=== PATIENT | female | born 1980 | race Two or more races ===

== ENCOUNTER 2021-04-25 16:33 | Inpatient (IN) | payer MEDICAID, OTHER ==
[~2021-04-25] VITALS: Ht 160 cm; Wt 61.1 kg
[2021-04-25 18:00] LABS: Albumin 3.7 g/dL (3.4-5.0); Calcium 8.1 mg/dL (8.5-10.1)
[2021-04-25 18:04] LABS: BUN/Creatinine Ratio 10.2; Bilirubin, Total 0.9 mg/dL (0.2-1.0); Total Protein 8.8 g/dL (6.4-8.2)
[2021-04-25 18:07] LABS: INR 0.99 (0.9-1.15); Partial Thromboplastin Time 26.1 sec (23.6-33.0)
[2021-04-25 18:26] LABS: Eosinophils # (auto) 0 10 ^3/uL (0-0.8); Hematocrit 14.7 % (36.0-46.0)
[2021-04-25] MEDS ORDERED: IOHEXOL 300 MG/ML 100ML BOTTLE IJ ONE (18:26)
[2021-04-25 18:27] LABS: Basophils # (auto) 0.1 10 ^3/uL (0-0.2); Basophils % (auto) 1.4 % (0.0-2.0); Eosinophils % (auto) 0.1 % (0.0-7.0); Lymphocytes # (auto) 0.5 10 ^3/uL (0.4-5.4); Lymphocytes % (auto) 9.4 % (10.0-50.0); Mean Corpuscular Hemoglobin 18.6 pg (28.0-32.0); Mean Corpuscular Volume 61.9 fL (80.0-100.0); Monocytes # (auto) 0.1 10 ^3/uL (0-1.3); Monocytes % (auto) 2.8 % (0.0-12.0); Neutrophils # (auto) 4.6 10 ^3/uL (1.6-8.6); Neutrophils % (auto) 86.3 % (37.0-80.0); Nucleated Red Blood Cells % 2.3 %; Red Blood Cells 2.37 10^6/uL (4.0-5.20); White Blood Cell 5.4 10^3/uL (4.4-10.8)
[2021-04-25 18:38] LABS: Red Cell Distribution Width 25.1 % (11.8-14.3)
[2021-04-25 18:40] LABS: Hemoglobin 4.4 g/dL (12.2-16.2)
[2021-04-25] MEDS ORDERED: SODIUM CHLORIDE 0.9% 500 ML IV ONE (21:15)
[2021-04-25 21:28] LABS: % Iron Saturation 4.6 % (15-50)
[2021-04-25] MEDS ORDERED: cefTRIAXone 1GM/50ML D5W 50 ML IV ONE (22:00)
[2021-04-25] MEDS ORDERED: MORPHINE SULFATE INJECTION 2 MG/ML SYRG IV PRN (22:00)
[2021-04-25] MEDS ORDERED: POTASSIUM CHL 20 Meq TABLET PO ONE (22:00)
[2021-04-25] MEDS: ASCORBIC ACID 500 MG TAB PO SCH (22:00)
[2021-04-25] MEDS ORDERED: NITROGLYCERIN 0.4 MG SL TAB SL PRN (22:00)
[2021-04-25] MEDS ORDERED: AZITHROMYCIN 250 MG TAB PO ONE (22:00)
[2021-04-25] MEDS ORDERED: ACETAMINOPHEN 325 MG TAB PO PRN (22:00)
[2021-04-25 23:10] VITALS: BP 105/65
[2021-04-25 23:25] VITALS: BP 93/55
[2021-04-26 00:10] VITALS: BP 102/51
[2021-04-26] MEDS ORDERED: AZITHROMYCIN 250 MG TAB PO ONE (00:47)
[2021-04-26] MEDS ORDERED: ASCORBIC ACID 1,000 MG TAB ONE (00:48)
[2021-04-26] MEDS ORDERED: cefTRIAXone 1GM/50ML D5W 50 ML IV ONE (00:48)
[2021-04-26] MEDS ORDERED: POTASSIUM CHL 20 Meq TABLET PO ONE (00:48)
[2021-04-26 01:30] VITALS: BP 103/56
[2021-04-26 01:50] VITALS: BP 100/47
[2021-04-26 02:10] VITALS: BP 102/70
[2021-04-26 03:10] VITALS: BP 95/59
[2021-04-26 04:25] VITALS: BP 96/53
[2021-04-26 07:50] LABS: White Blood Cell 5.1 10^3/uL (4.4-10.8)
[2021-04-26 07:53] LABS: Basophils # (auto) 0 10 ^3/uL (0-0.2); Basophils % (auto) 0.5 % (0.0-2.0); Eosinophils # (auto) 0 10 ^3/uL (0-0.8); Eosinophils % (auto) 0.1 % (0.0-7.0); Hemoglobin 7.9 g/dL (12.2-16.2); Lymphocytes # (auto) 0.4 10 ^3/uL (0.4-5.4); Lymphocytes % (auto) 8.5 % (10.0-50.0); Mean Corpuscular Hgb Conc. 31.7 g/dL (32.0-36.0); Monocytes # (auto) 0.1 10 ^3/uL (0-1.3); Monocytes % (auto) 2.2 % (0.0-12.0); Neutrophils # (auto) 4.6 10 ^3/uL (1.6-8.6); Neutrophils % (auto) 88.7 % (37.0-80.0); Nucleated Red Blood Cells % 1.8 %; Red Blood Cells 3.57 10^6/uL (4.0-5.20); Red Cell Distribution Width 31.4 % (11.8-14.3)
[2021-04-26 08:03] LABS: Mean Corpuscular Hemoglobin 22.2 pg (28.0-32.0)
[2021-04-26 08:10] LABS: BUN/Creatinine Ratio 10.3; Calcium 8.3 mg/dL (8.5-10.1); Potassium 3.5 mmol/L (3.5-5.1)
[2021-04-26] MEDS: ASCORBIC ACID 500 MG TAB PO SCH ×2 (10:12→22:30)
[2021-04-26] MEDS: ZINC SULFATE 220mg CAP or TAB PO SCH (10:12)
[2021-04-26] MEDS ORDERED: REMDESIVIR PER PHARMACY 0 ML IV SCH ×2 (13:45)
[2021-04-26] MEDS: FERROUS SULFATE 325mg EC TAB PO SCH (13:45)
[2021-04-26] MEDS: cefTRIAXone 1GM/50ML D5W 50 ML IV SCH (22:00)
[2021-04-26] MEDS: AZITHROMYCIN 500MG/ 250ML 250 ML IV SCH (22:30)
[2021-04-27 02:11] LABS: Urine Bacteria NONE SEEN /hpf (None Seen); Urine Blood 2+ /uL (Negative); Urine Mucus FEW (None Seen); Urine Specific Gravity 1.025 (1.001-1.035); Urine WBC 20 /hpf (0 - 5)
[2021-04-27 06:57] LABS: Basophils # (auto) 0 10 ^3/uL (0-0.2); Eosinophils # (auto) 0 10 ^3/uL (0-0.8); Eosinophils % (auto) 0.1 % (0.0-7.0); Hemoglobin 7.6 g/dL (12.2-16.2); Lymphocytes # (auto) 0.4 10 ^3/uL (0.4-5.4); Lymphocytes % (auto) 9.6 % (10.0-50.0); Monocytes # (auto) 0.1 10 ^3/uL (0-1.3); Neutrophils # (auto) 3.4 10 ^3/uL (1.6-8.6); White Blood Cell 3.9 10^3/uL (4.4-10.8)
[2021-04-27 07:03] LABS: Basophils % (auto) 0.1 % (0.0-2.0); Hematocrit 23.9 % (36.0-46.0); Monocytes % (auto) 2.7 % (0.0-12.0); Neutrophils % (auto) 87.5 % (37.0-80.0); Nucleated Red Blood Cells % 1.6 %; Red Blood Cells 3.33 10^6/uL (4.0-5.20)
[2021-04-27 07:05] LABS: Mean Corpuscular Volume 71.8 fL (80.0-100.0)
[2021-04-27 07:06] LABS: Red Cell Distribution Width 31.5 % (11.8-14.3)
[2021-04-27 07:19] LABS: Albumin 3.1 g/dL (3.4-5.0); BUN/Creatinine Ratio 9.6; Calcium 8.2 mg/dL (8.5-10.1); Potassium 3.3 mmol/L (3.5-5.1)
[2021-04-27 07:21] LABS: Bilirubin, Total 0.8 mg/dL (0.2-1.0); Total Protein 7.7 g/dL (6.4-8.2)
[2021-04-27] MEDS: ZINC SULFATE 220mg CAP or TAB PO SCH (10:58)
[2021-04-27] MEDS ORDERED: FUROSEMIDE 20 MG TAB PO ONE (11:00)
[2021-04-27] MEDS ORDERED: guaiFENesin-DM 100/10mg/5ml SYR PO PRN (11:00)
[2021-04-27] MEDS ORDERED: POTASSIUM CHL 20 Meq TABLET PO ONE (11:00)
[2021-04-27] MEDS ORDERED: ACETAMINOPHEN 500 MG TAB PO PRN (11:00)
[2021-04-27] MEDS ORDERED: REMDESIVIR 200 MG in NS 210ml LOADING DOSE ADULT IV ONE (12:00)
[2021-04-27] MEDS: FERROUS SULFATE 325mg EC TAB PO SCH (12:19)
[2021-04-27] MEDS: IVERMECTIN 3 MG TAB PO SCH (12:20)
[2021-04-27] MEDS: ONDANSETRON HCL 4 MG/2 ML VIAL IV PRN ×2 (12:22→22:34)
[2021-04-27 17:39] VITALS: BP 112/53
[2021-04-27 18:16] VITALS: BP 105/63
[2021-04-27] MEDS: BUDESONIDE (INHALATION) 180 MCG IH IN SCH (20:48)
[2021-04-27] MEDS: AZITHROMYCIN 500MG/ 250ML 250 ML IV SCH (21:21)
[2021-04-27] MEDS: cefTRIAXone 1GM/50ML D5W 50 ML IV SCH (21:21)
[2021-04-27 22:00] VITALS: BP 93/57
[2021-04-28 05:00] VITALS: BP 102/67
[2021-04-28] MEDS: ONDANSETRON HCL 4 MG/2 ML VIAL IV PRN (06:51)
[2021-04-28 08:08] LABS: Basophils # (auto) 0 10 ^3/uL (0-0.2); Monocytes # (auto) 0.1 10 ^3/uL (0-1.3); Neutrophils # (auto) 2.8 10 ^3/uL (1.6-8.6); White Blood Cell 3.2 10^3/uL (4.4-10.8)
[2021-04-28 08:15] LABS: Basophils % (auto) 0.5 % (0.0-2.0); Eosinophils # (auto) 0 10 ^3/uL (0-0.8); Eosinophils % (auto) 0.5 % (0.0-7.0); Hematocrit 25.2 % (36.0-46.0); Hemoglobin 8.1 g/dL (12.2-16.2); Lymphocytes # (auto) 0.3 10 ^3/uL (0.4-5.4); Monocytes % (auto) 2.8 % (0.0-12.0); Neutrophils % (auto) 86.2 % (37.0-80.0); Nucleated Red Blood Cells % 1.8 %; Red Blood Cells 3.44 10^6/uL (4.0-5.20)
[2021-04-28] MEDS: BUDESONIDE (INHALATION) 180 MCG IH IN SCH ×2 (08:15→22:00)
[2021-04-28 08:18] LABS: Mean Corpuscular Hemoglobin 23.5 pg (28.0-32.0); Mean Corpuscular Volume 73.3 fL (80.0-100.0)
[2021-04-28 08:19] LABS: Red Cell Distribution Width 31.7 % (11.8-14.3)
[2021-04-28 08:35] VITALS: BP 97/61
[2021-04-28 08:39] LABS: Potassium 3.2 mmol/L (3.5-5.1)
[2021-04-28 09:12] LABS: Albumin 3.1 g/dL (3.4-5.0); BUN/Creatinine Ratio 14.3; Bilirubin, Total 0.7 mg/dL (0.2-1.0); Calcium 8.3 mg/dL (8.5-10.1)
[2021-04-28] MEDS: FUROSEMIDE 20 MG TAB PO SCH (10:14)
[2021-04-28] MEDS: ZINC SULFATE 220mg CAP or TAB PO SCH (10:14)
[2021-04-28] MEDS: ASCORBIC ACID 1,000 MG TAB PO SCH (10:14)
[2021-04-28] MEDS: IVERMECTIN 3 MG TAB PO SCH (10:14)
[2021-04-28] MEDS: POTASSIUM CHL 20 Meq TABLET PO SCH (10:14)
[2021-04-28] MEDS: CHOLECALCIFEROL (VITD3) 2,000 UNIT CAP/TAB PO SCH (10:15)
[2021-04-28] MEDS: ALBUTEROL SULF HFA 90MCG INH 200DOSE IN PRN (11:26)
[2021-04-28] MEDS: FERROUS SULFATE 325mg EC TAB PO SCH (12:02)
[2021-04-28 13:00] VITALS: BP 100/65
[2021-04-28] MEDS: REMDESIVIR 100mg 100 MG in SODIUM CHL 0.9% 230 ML IV SCH (14:27)
[2021-04-28] MEDS: POTASSIUM CHL 10MEQ/50ML 50 ML IV SCH ×4 (15:06→18:29)
[2021-04-28 17:00] VITALS: BP 108/72
[2021-04-28] MEDS: cefTRIAXone 1GM/50ML D5W 50 ML IV SCH (20:10)
[2021-04-28] MEDS: AZITHROMYCIN 500MG/ 250ML 250 ML IV SCH (21:22)
[2021-04-28 22:00] VITALS: BP 100/64
[2021-04-29 05:00] VITALS: BP 101/64
[2021-04-29 07:45] LABS: Basophils # (auto) 0 10 ^3/uL (0-0.2); Basophils % (auto) 0.5 % (0.0-2.0); Eosinophils # (auto) 0 10 ^3/uL (0-0.8); Eosinophils % (auto) 0.9 % (0.0-7.0); Hematocrit 28.4 % (36.0-46.0); Lymphocytes # (auto) 0.3 10 ^3/uL (0.4-5.4); Lymphocytes % (auto) 10.1 % (10.0-50.0); Mean Corpuscular Hgb Conc. 31.6 g/dL (32.0-36.0); Mean Corpuscular Volume 72.8 fL (80.0-100.0); Monocytes # (auto) 0.1 10 ^3/uL (0-1.3); Monocytes % (auto) 5.2 % (0.0-12.0); Neutrophils # (auto) 2.1 10 ^3/uL (1.6-8.6); Neutrophils % (auto) 83.3 % (37.0-80.0); Nucleated Red Blood Cells % 1.4 %; Red Cell Distribution Width 32.5 % (11.8-14.3); White Blood Cell 2.5 10^3/uL (4.4-10.8)
[2021-04-29 07:56] LABS: Albumin 3.3 g/dL (3.4-5.0); BUN/Creatinine Ratio 14.9; Calcium 8.9 mg/dL (8.5-10.1); Potassium 3.8 mmol/L (3.5-5.1)
[2021-04-29 07:59] LABS: Bilirubin, Total 0.8 mg/dL (0.2-1.0); Total Protein 8.9 g/dL (6.4-8.2)
[2021-04-29 09:00] VITALS: BP 94/60
[2021-04-29] MEDS: BUDESONIDE (INHALATION) 180 MCG IH IN SCH ×2 (09:30→21:54)
[2021-04-29] MEDS: ASCORBIC ACID 1,000 MG TAB PO SCH (10:00)
[2021-04-29] MEDS: POTASSIUM CHL 20 Meq TABLET PO SCH (10:00)
[2021-04-29] MEDS: ZINC SULFATE 220mg CAP or TAB PO SCH (10:00)
[2021-04-29] MEDS: IVERMECTIN 3 MG TAB PO SCH (10:00)
[2021-04-29] MEDS: FUROSEMIDE 20 MG TAB PO SCH (10:00)
[2021-04-29] MEDS: CHOLECALCIFEROL (VITD3) 2,000 UNIT CAP/TAB PO SCH (10:00)
[2021-04-29] MEDS: FERROUS SULFATE 325mg EC TAB PO SCH (12:00)
[2021-04-29 12:25] VITALS: BP 102/65
[2021-04-29 14:30] VITALS: BP 101/63
[2021-04-29] MEDS: REMDESIVIR 100mg 100 MG in SODIUM CHL 0.9% 230 ML IV SCH (15:00)
[2021-04-29] MEDS: ALBUTEROL SULF HFA 90MCG INH 200DOSE IN PRN (15:17)
[2021-04-29 17:00] VITALS: BP 101/63
[2021-04-29] MEDS: cefTRIAXone 1GM/50ML D5W 50 ML IV SCH (21:16)
[2021-04-29 22:00] VITALS: BP 100/68
[2021-04-29] MEDS: AZITHROMYCIN 500MG/ 250ML 250 ML IV SCH (22:16)
[2021-04-30 05:00] VITALS: BP 95/65
[2021-04-30] MEDS: AZITHROMYCIN 500MG/ 250ML 250 ML IV SCH ×2 (06:17→21:52)
[2021-04-30] MEDS: ALBUTEROL SULF HFA 90MCG INH 200DOSE IN PRN ×2 (07:22→21:00)
[2021-04-30] MEDS: BUDESONIDE (INHALATION) 180 MCG IH IN SCH ×2 (07:22→19:11)
[2021-04-30 08:30] VITALS: BP 91/56
[2021-04-30 08:32] LABS: Basophils # (auto) 0 10 ^3/uL (0-0.2); Eosinophils # (auto) 0 10 ^3/uL (0-0.8); Hemoglobin 7.6 g/dL (12.2-16.2); Lymphocytes # (auto) 0.3 10 ^3/uL (0.4-5.4); Mean Corpuscular Hgb Conc. 31.8 g/dL (32.0-36.0); Monocytes # (auto) 0.1 10 ^3/uL (0-1.3); Neutrophils # (auto) 1.6 10 ^3/uL (1.6-8.6)
[2021-04-30 08:39] LABS: Basophils % (auto) 0.9 % (0.0-2.0); Eosinophils % (auto) 1.9 % (0.0-7.0); Lymphocytes % (auto) 13.1 % (10.0-50.0); Mean Corpuscular Volume 75.5 fL (80.0-100.0); Monocytes % (auto) 4.7 % (0.0-12.0); Neutrophils % (auto) 79.4 % (37.0-80.0); Nucleated Red Blood Cells % 1.9 %; Red Blood Cells 3.18 10^6/uL (4.0-5.20)
[2021-04-30 08:40] LABS: Red Cell Distribution Width 32.9 % (11.8-14.3)
[2021-04-30 09:11] LABS: Albumin 2.7 g/dL (3.4-5.0); BUN/Creatinine Ratio 19.7; Calcium 8.3 mg/dL (8.5-10.1)
[2021-04-30 09:20] LABS: Bilirubin, Total 0.5 mg/dL (0.2-1.0); Total Protein 7.1 g/dL (6.4-8.2)
[2021-04-30] MEDS ORDERED: DexAMETHasone SOD PHOS 10MG/1ML VIAL INJ IV ONE (12:00)
[2021-04-30] MEDS: CHOLECALCIFEROL (VITD3) 2,000 UNIT CAP/TAB PO SCH (12:29)
[2021-04-30] MEDS: FERROUS SULFATE 325mg EC TAB PO SCH (12:29)
[2021-04-30] MEDS: FUROSEMIDE 20 MG TAB PO SCH (12:29)
[2021-04-30] MEDS: ZINC SULFATE 220mg CAP or TAB PO SCH (12:30)
[2021-04-30] MEDS: IVERMECTIN 3 MG TAB PO SCH (12:31)
[2021-04-30] MEDS: ASCORBIC ACID 1,000 MG TAB PO SCH (12:31)
[2021-04-30] MEDS: POTASSIUM CHL 20 Meq TABLET PO SCH (12:31)
[2021-04-30 13:00] VITALS: BP 112/71
[2021-04-30] MEDS ORDERED: acetaZOLAMIDE 250 MG TAB PO ONE (13:00)
[2021-04-30] MEDS: REMDESIVIR 100mg 100 MG in SODIUM CHL 0.9% 230 ML IV SCH (15:00)
[2021-04-30] MEDS: cefTRIAXone 1GM/50ML D5W 50 ML IV SCH (20:07)
[2021-04-30] MEDS: TEMAZEPAM 15 MG CAP PO PRN (21:53)
[2021-04-30 22:00] VITALS: BP 95/56
[2021-05-01] MEDS: BUDESONIDE (INHALATION) 180 MCG IH IN SCH ×2 (05:50→20:10)
[2021-05-01] MEDS: ALBUTEROL SULF HFA 90MCG INH 200DOSE IN PRN ×2 (05:50→20:10)
[2021-05-01 07:35] LABS: Potassium 3.9 mmol/L (3.5-5.1)
[2021-05-01 08:05] LABS: BUN/Creatinine Ratio 20.8; Bilirubin, Total 0.4 mg/dL (0.2-1.0); Calcium 8.1 mg/dL (8.5-10.1); Total Protein 7.2 g/dL (6.4-8.2)
[2021-05-01 09:00] VITALS: BP 94/55
[2021-05-01] MEDS: ASCORBIC ACID 1,000 MG TAB PO SCH (10:02)
[2021-05-01] MEDS: ZINC SULFATE 220mg CAP or TAB PO SCH (10:02)
[2021-05-01] MEDS: DexAMETHasone SOD PHOS 10MG/1ML VIAL INJ IV SCH (11:52)
[2021-05-01] MEDS: IVERMECTIN 3 MG TAB PO SCH (11:53)
[2021-05-01] MEDS: FERROUS SULFATE 325mg EC TAB PO SCH (11:53)
[2021-05-01] MEDS: CHOLECALCIFEROL (VITD3) 2,000 UNIT CAP/TAB PO SCH (11:53)
[2021-05-01 13:00] VITALS: BP 106/67
[2021-05-01 17:00] VITALS: BP 101/62
[2021-05-01] MEDS: REMDESIVIR 100mg 100 MG in SODIUM CHL 0.9% 230 ML IV SCH (18:15)
[2021-05-01] MEDS: TEMAZEPAM 15 MG CAP PO PRN (21:00)
[2021-05-01] MEDS: cefTRIAXone 1GM/50ML D5W 50 ML IV SCH (21:36)
[2021-05-01 22:00] VITALS: BP 93/53
[2021-05-01] MEDS: AZITHROMYCIN 500MG/ 250ML 250 ML IV SCH (23:00)
[2021-05-02 05:00] VITALS: BP 85/49
[2021-05-02 06:07] LABS: Hemoglobin 7.9 g/dL (12.2-16.2)
[2021-05-02 06:10] LABS: Hematocrit 25.2 % (36.0-46.0)
[2021-05-02] MEDS: ALBUTEROL SULF HFA 90MCG INH 200DOSE IN PRN ×2 (06:59→21:42)
[2021-05-02] MEDS: BUDESONIDE (INHALATION) 180 MCG IH IN SCH ×2 (06:59→21:42)
[2021-05-02 09:00] VITALS: BP 97/57
[2021-05-02] MEDS: DexAMETHasone SOD PHOS 10MG/1ML VIAL INJ IV SCH (09:26)
[2021-05-02] MEDS: ZINC SULFATE 220mg CAP or TAB PO SCH (09:27)
[2021-05-02] MEDS: ASCORBIC ACID 1,000 MG TAB PO SCH (09:27)
[2021-05-02] MEDS: CHOLECALCIFEROL (VITD3) 2,000 UNIT CAP/TAB PO SCH (09:27)
[2021-05-02] MEDS ORDERED: IRON SUCROSE COMPLEX 200 MG in SODIUM CHL 0.9% 100 ML IV SCH (12:00)
[2021-05-02] MEDS ORDERED: SODIUM FERR GLUC 62.5MG/5ML 125 MG in SODIUM CHL 0.9% 100 ML IV SCH (12:00)
[2021-05-02 13:00] VITALS: BP 92/55
[2021-05-02] MEDS: FERROUS SULFATE 325mg EC TAB PO SCH (13:16)
[2021-05-02] MEDS ORDERED: SODIUM FERR GLUC 62.5MG/5ML 125 MG in SODIUM CHL 0.9% 100 ML IV ONE (15:00)
[2021-05-02 17:00] VITALS: BP 85/54
[2021-05-02] MEDS: cefTRIAXone 1GM/50ML D5W 50 ML IV SCH (19:53)
[2021-05-02] MEDS: AZITHROMYCIN 500MG/ 250ML 250 ML IV SCH (21:20)
[2021-05-02] MEDS: TEMAZEPAM 15 MG CAP PO PRN (21:30)
[2021-05-02 22:00] VITALS: BP 87/53
[2021-05-03 05:00] VITALS: BP 90/50
[2021-05-03] MEDS: BUDESONIDE (INHALATION) 180 MCG IH IN SCH ×2 (05:51→19:29)
[2021-05-03] MEDS: ALBUTEROL SULF HFA 90MCG INH 200DOSE IN PRN ×2 (05:51→21:08)
[2021-05-03 07:35] VITALS: BP 83/50
[2021-05-03] MEDS: ASCORBIC ACID 1,000 MG TAB PO SCH (09:32)
[2021-05-03] MEDS: ZINC SULFATE 220mg CAP or TAB PO SCH (09:32)
[2021-05-03] MEDS: CHOLECALCIFEROL (VITD3) 2,000 UNIT CAP/TAB PO SCH (09:32)
[2021-05-03] MEDS: DexAMETHasone SOD PHOS 10MG/1ML VIAL INJ IV SCH (09:32)
[2021-05-03 12:45] VITALS: BP 81/46
[2021-05-03] MEDS: SODIUM FERR GLUC 62.5MG/5ML 125 MG in SODIUM CHL 0.9% 100 ML IV SCH (13:30)
[2021-05-03 16:20] VITALS: BP 91/59
[2021-05-03 22:00] VITALS: BP 92/49
[2021-05-04 05:00] VITALS: BP 93/53
[2021-05-04] MEDS: ALBUTEROL SULF HFA 90MCG INH 200DOSE IN PRN ×2 (06:48→21:43)
[2021-05-04] MEDS: BUDESONIDE (INHALATION) 180 MCG IH IN SCH ×2 (06:48→21:42)
[2021-05-04 09:00] VITALS: BP 94/46
[2021-05-04] MEDS: CHOLECALCIFEROL (VITD3) 2,000 UNIT CAP/TAB PO SCH (10:07)
[2021-05-04] MEDS: ASCORBIC ACID 1,000 MG TAB PO SCH (10:07)
[2021-05-04] MEDS: ZINC SULFATE 220mg CAP or TAB PO SCH (10:07)
[2021-05-04] MEDS: DexAMETHasone SOD PHOS 10MG/1ML VIAL INJ IV SCH (10:07)
[2021-05-04] MEDS: SODIUM FERR GLUC 62.5MG/5ML 125 MG in SODIUM CHL 0.9% 100 ML IV SCH (12:30)
[2021-05-04 13:03] VITALS: BP 88/59
[2021-05-04 17:00] VITALS: BP 91/54
[2021-05-04 22:00] VITALS: BP 90/49
[2021-05-05 05:00] VITALS: BP 84/55
[2021-05-05] MEDS: BUDESONIDE (INHALATION) 180 MCG IH IN SCH ×2 (06:01→19:40)
[2021-05-05] MEDS: ALBUTEROL SULF HFA 90MCG INH 200DOSE IN PRN ×2 (06:01→19:40)
[2021-05-05 08:08] LABS: Basophils # (auto) 0 10 ^3/uL (0-0.2); Basophils % (auto) 0.1 % (0.0-2.0); Eosinophils # (auto) 0 10 ^3/uL (0-0.8); Eosinophils % (auto) 0.1 % (0.0-7.0); Lymphocytes # (auto) 0.4 10 ^3/uL (0.4-5.4); Mean Corpuscular Hgb Conc. 30.7 g/dL (32.0-36.0); Monocytes # (auto) 0.2 10 ^3/uL (0-1.3)
[2021-05-05 08:09] LABS: Hematocrit 26.9 % (36.0-46.0); Hemoglobin 8.3 g/dL (12.2-16.2); Lymphocytes % (auto) 10.5 % (10.0-50.0); Mean Corpuscular Hemoglobin 22.6 pg (28.0-32.0); Mean Corpuscular Volume 73.4 fL (80.0-100.0); Monocytes % (auto) 4.7 % (0.0-12.0); Neutrophils # (auto) 3.5 10 ^3/uL (1.6-8.6); Neutrophils % (auto) 84.6 % (37.0-80.0); Nucleated Red Blood Cells % 2.8 %; Red Blood Cells 3.66 10^6/uL (4.0-5.20); White Blood Cell 4.2 10^3/uL (4.4-10.8)
[2021-05-05 08:12] LABS: Red Cell Distribution Width 31.8 % (11.8-14.3)
[2021-05-05 09:00] VITALS: BP 94/62
[2021-05-05] MEDS: DexAMETHasone SOD PHOS 10MG/1ML VIAL INJ IV SCH (10:54)
[2021-05-05] MEDS: ASCORBIC ACID 1,000 MG TAB PO SCH (10:55)
[2021-05-05] MEDS: CHOLECALCIFEROL (VITD3) 2,000 UNIT CAP/TAB PO SCH (10:55)
[2021-05-05] MEDS: ZINC SULFATE 220mg CAP or TAB PO SCH (12:00)
[2021-05-05] MEDS: SODIUM FERR GLUC 62.5MG/5ML 125 MG in SODIUM CHL 0.9% 100 ML IV SCH (12:00)
[2021-05-05 13:00] VITALS: BP 91/58
[2021-05-05 17:00] VITALS: BP 97/64
[2021-05-05 22:00] VITALS: BP 93/52
[2021-05-06 05:00] VITALS: BP 88/52
[2021-05-06] MEDS: ALBUTEROL SULF HFA 90MCG INH 200DOSE IN PRN ×2 (07:17→20:59)
[2021-05-06] MEDS: BUDESONIDE (INHALATION) 180 MCG IH IN SCH ×2 (07:17→20:59)
[2021-05-06 08:04] LABS: Hematocrit 28.3 % (36.0-46.0); Mean Corpuscular Hemoglobin 23.2 pg (28.0-32.0); Mean Corpuscular Hgb Conc. 31.9 g/dL (32.0-36.0); Red Blood Cells 3.88 10^6/uL (4.0-5.20); Red Cell Distribution Width 32.2 % (11.8-14.3); White Blood Cell 4.1 10^3/uL (4.4-10.8)
[2021-05-06 08:08] LABS: Albumin 3.1 g/dL (3.4-5.0); Calcium 8.7 mg/dL (8.5-10.1); Potassium 3.9 mmol/L (3.5-5.1)
[2021-05-06 08:12] LABS: Bilirubin, Total 0.6 mg/dL (0.2-1.0); Total Protein 7.1 g/dL (6.4-8.2)
[2021-05-06 08:24] LABS: Basophils % (manual) 0 (0.0-2.0); Blast Cells 0; Metamyelocytes % 0; Myelocytes % 0; Promyelocytes % 0; Reactive Lymphocytes 0
[2021-05-06 09:00] VITALS: BP 94/50
[2021-05-06] MEDS: DexAMETHasone SOD PHOS 10MG/1ML VIAL INJ IV SCH (10:04)
[2021-05-06] MEDS: ZINC SULFATE 220mg CAP or TAB PO SCH (10:04)
[2021-05-06] MEDS: CHOLECALCIFEROL (VITD3) 2,000 UNIT CAP/TAB PO SCH (10:04)
[2021-05-06] MEDS: ASCORBIC ACID 1,000 MG TAB PO SCH (10:04)
[2021-05-06] MEDS: SODIUM FERR GLUC 62.5MG/5ML 125 MG in SODIUM CHL 0.9% 100 ML IV SCH (12:00)
[2021-05-06 13:00] VITALS: BP 88/53
[2021-05-06 13:34] LABS: Band Neutrophils % (manual) 4; Eosinophils % (manual) 1 (0-7); Lymphocytes % (manual) 4 (10.0-50.0); Monocytes % (manual) 3 (0-12)
[2021-05-06 17:00] VITALS: BP 91/54
[2021-05-06 22:00] VITALS: BP 91/51
[2021-05-07 05:00] VITALS: BP 95/53
[2021-05-07 07:00] LABS: Basophils # (auto) 0 10 ^3/uL (0-0.2); Basophils % (auto) 0.1 % (0.0-2.0); Eosinophils # (auto) 0 10 ^3/uL (0-0.8); Eosinophils % (auto) 0.1 % (0.0-7.0); Hematocrit 29.2 % (36.0-46.0); Hemoglobin 9.2 g/dL (12.2-16.2); Lymphocytes # (auto) 0.3 10 ^3/uL (0.4-5.4); Lymphocytes % (auto) 6.3 % (10.0-50.0); Mean Corpuscular Hgb Conc. 31.4 g/dL (32.0-36.0); Monocytes # (auto) 0.2 10 ^3/uL (0-1.3); Monocytes % (auto) 4.8 % (0.0-12.0); Neutrophils # (auto) 4.1 10 ^3/uL (1.6-8.6); Neutrophils % (auto) 88.7 % (37.0-80.0); Nucleated Red Blood Cells % 0.5 %; White Blood Cell 4.6 10^3/uL (4.4-10.8)
[2021-05-07 07:01] LABS: Mean Corpuscular Volume 74.8 fL (80.0-100.0)
[2021-05-07 07:02] LABS: Mean Corpuscular Hemoglobin 23.5 pg (28.0-32.0); Red Cell Distribution Width 32.5 % (11.8-14.3)
[2021-05-07 07:11] LABS: Potassium 3.7 mmol/L (3.5-5.1)
[2021-05-07 07:21] LABS: Albumin 3.1 g/dL (3.4-5.0); BUN/Creatinine Ratio 26.2; Bilirubin, Total 0.7 mg/dL (0.2-1.0); Calcium 8.9 mg/dL (8.5-10.1)
[2021-05-07 09:00] VITALS: BP 90/46
[2021-05-07] MEDS: ZINC SULFATE 220mg CAP or TAB PO SCH (09:42)
[2021-05-07] MEDS: DexAMETHasone SOD PHOS 10MG/1ML VIAL INJ IV SCH (09:43)
[2021-05-07] MEDS: CHOLECALCIFEROL (VITD3) 2,000 UNIT CAP/TAB PO SCH (09:43)
[2021-05-07] MEDS: ASCORBIC ACID 1,000 MG TAB PO SCH (10:00)
[2021-05-07 13:00] VITALS: BP 97/65
[2021-05-07 17:00] VITALS: BP 96/58
[2021-05-07] MEDS: BUDESONIDE (INHALATION) 180 MCG IH IN SCH (19:04)
[2021-05-07] MEDS: ALBUTEROL SULF HFA 90MCG INH 200DOSE IN PRN (19:04)
[2021-05-08 08:00] VITALS: BP 92/56
[2021-05-08] MEDS: BUDESONIDE (INHALATION) 180 MCG IH IN SCH ×2 (10:02→21:40)
[2021-05-08] MEDS: ASCORBIC ACID 1,000 MG TAB PO SCH (10:03)
[2021-05-08] MEDS: ZINC SULFATE 220mg CAP or TAB PO SCH (10:03)
[2021-05-08] MEDS: CHOLECALCIFEROL (VITD3) 2,000 UNIT CAP/TAB PO SCH (10:03)
[2021-05-08] MEDS: DexAMETHasone 4 MG TAB PO SCH (10:14)
[2021-05-08] MEDS: ALBUTEROL SULF HFA 90MCG INH 200DOSE IN PRN ×2 (10:51→21:40)
[2021-05-08 12:00] VITALS: BP 91/56
[2021-05-08] MEDS: FERROUS SULFATE 325mg EC TAB PO SCH (13:56)
[2021-05-08 17:00] VITALS: BP 95/59
[2021-05-08 22:00] VITALS: BP 87/50
[2021-05-09 05:00] VITALS: BP 93/60
[2021-05-09] MEDS: BUDESONIDE (INHALATION) 180 MCG IH IN SCH (07:32)
[2021-05-09] MEDS: ALBUTEROL SULF HFA 90MCG INH 200DOSE IN PRN (07:32)
[2021-05-09 08:48] VITALS: BP 98/65
[2021-05-09] MEDS: DexAMETHasone 4 MG TAB PO SCH (09:52)
[2021-05-09] MEDS: ZINC SULFATE 220mg CAP or TAB PO SCH (09:52)
[2021-05-09] MEDS: CHOLECALCIFEROL (VITD3) 2,000 UNIT CAP/TAB PO SCH (09:53)
[2021-05-09] MEDS: ASCORBIC ACID 1,000 MG TAB PO SCH (09:53)
[2021-05-09] MEDS ORDERED: CHOL1CAP47 PO (10:19)
[2021-05-09] MEDS ORDERED: ZINC220T6 PO (10:19)
[2021-05-09] MEDS ORDERED: ALBUAER3 IN (10:19)
[2021-05-09] MEDS ORDERED: ASCO10003 PO (10:19)
[2021-05-09] MEDS ORDERED: FER325T PO (10:19)
[2021-05-09 13:00] VITALS: BP 86/48
[2021-05-09] MEDS: FERROUS SULFATE 325mg EC TAB PO SCH (13:28)
[2021-05-09 15:36] VITALS: BP 96/56
[2021-05-09 17:00] VITALS: BP 92/51
== END 2021-05-09 18:39 | disposition home or self-care (01) | DRG 137 ==
LOC: ER 16:42 → TELE 21:54 → TELE-WESTW 04-27 09:22 → WEST WING 05-07 15:07
PROVIDERS: ADMIT Nurse Practitioner; ATTEND Internal Medicine
PROC: 30233N1 Transfusion of Nonautologous Red Blood Cells into Peripheral Vein, Percutaneous Approach (ICD-10-PCS; principal; 2021-04-25)
PROC: XW033E5 Introduction of Remdesivir Anti-infective into Peripheral Vein, Percutaneous Approach, New Technology Group 5 (ICD-10-PCS; 2021-04-27)
DX: U07.1 COVID-19 (principal); J96.00 Acute respiratory failure, unspecified whether with hypoxia or hypercapnia; J12.82 Pneumonia due to coronavirus disease 2019; D50.9 Iron deficiency anemia, unspecified; N92.0 Excessive and frequent menstruation with regular cycle; E87.6 Hypokalemia; E87.1 Hypo-osmolality and hyponatremia
CPT/HCPCS: 36415; 36600; 71045; 74177; 76856; 80048; 80053; 81001; 82728; 82805; 82962; 83010; 83036; 83540; 83550; 83615; 84484; 84702; 85007; 85014; 85018; 85025; 85027; 85379; 85610; 85652; 85730; 86141; 86850; 86900; 86901; 86920; 87426; 93005; 93306; 93970; 94640; 96361; 96374; 97110; 97116; 97530; G0378; J0696; J1100; J2405

== ENCOUNTER 2022-12-31 16:48 | Emergency (ER) | payer MEDICAID ==
[~2022-12-31] VITALS: Ht 157.5 cm; Wt 66.5 kg
[~2022-12-31 16:48] MED LIST: ALBUAER3 IN; ASCO10003 PO; CHOL1CAP47 PO; FER325T PO; ZINC220T6 PO
[2022-12-31 17:50] LABS: Alanine Aminotransferase 19 U/L (7-40); Albumin 5.3 g/dL (3.2-4.8); Alkaline Phosphatase 41 U/L (46-116); Anion Gap 7 (5-15); Aspartate Aminotransferase 40 U/L (13-40); Bilirubin, Total 0.7 mg/dL (0.2-1.0); Blood Urea Nitrogen 9 mg/dL (9-23); Calcium 9.8 mg/dL (8.7-10.4); Carbon Dioxide 28 mmol/L (20-30); Chloride 102 mmol/L (98-107); Glucose 93 mg/dL (74-106); Potassium 3.5 mmol/L (3.5-5.1); Sodium 137 mmol/L (136-145); Total Protein 8.7 g/dL (5.7-8.2)
[2022-12-31 18:20] LABS: Mean Corpuscular Hemoglobin 22.3 pg (28.0-32.0); Mean Corpuscular Hgb Conc. 31.1 g/dL (32.0-36.0); Mean Corpuscular Volume 71.7 fL (80.0-100.0); Red Blood Cells 2.94 10^6/uL (4.0-5.20); Red Cell Distribution Width 19.4 % (11.8-14.3); White Blood Cell 5.1 10^3/uL (4.4-10.8)
[2022-12-31 18:36] LABS: Hemoglobin 6.6 g/dL (12.2-16.2)
[2022-12-31 18:37] LABS: Band Neutrophils % (manual) 0; Basophils % (manual) 0 (0.0-2.0); Blast Cells 0; Metamyelocytes % 0; Myelocytes % 0; Promyelocytes % 0; Reactive Lymphocytes 0
[2022-12-31 19:30] VITALS: PULSE 66; RESP 14; O2SAT 95
[2022-12-31] MEDS ORDERED: FERR-7 PO (19:37)
[2022-12-31] MEDS ORDERED: ZOFR4T PO (19:37)
[2022-12-31 20:21] LABS: Anisocytosis Slight; Eosinophils % (manual) 14 (0-7); Lymphocytes % (manual) 26 (10.0-50.0); Monocytes % (manual) 4 (0-12); Platelet Estimate Adequate
[2022-12-31 20:22] LABS: Hypochromia Moderate
[2022-12-31 21:11] VITALS: BP 113/59; PULSE 64; RESP 12; TEMP 97.9
[2022-12-31 21:26] VITALS: BP 92/57; PULSE 60; RESP 16; TEMP 97.6
[2022-12-31 23:39] VITALS: BP 94/60; PULSE 58; RESP 14; TEMP 97.7
[2022-12-31 23:46] VITALS: BP 94/58; PULSE 60; RESP 14; TEMP 97.8
[2023-01-01 02:04] VITALS: BP 100/70; PULSE 58; RESP 13; TEMP 98.1
[2023-01-01 02:19] VITALS: BP 100/70; PULSE 58; RESP 12; TEMP 98.7
[2023-01-01 02:20] VITALS: BP 108/68; PULSE 57; RESP 18; TEMP 97.8; O2SAT 98
[2023-01-03] MEDS ORDERED: PRED20TA2 PO (07:34)
[2023-01-03] MEDS ORDERED: AUG875T PO (07:34)
== END 2023-01-01 03:00 | disposition home or self-care (01) ==
LOC: ER 16:48
DX: D64.9 Anemia, unspecified (principal); Z79.899 Other long term (current) drug therapy
CPT/HCPCS: 36415; 36430; 80053; 85007; 85027; 86850; 86900; 86901; 86920; 99291; P9016